=== PATIENT | female | born 1955 | race African-American/Black ===

== ENCOUNTER 2020-09-24 16:36 | Emergency (ER) | payer OTHER, SELFPAY ==
--- NOTE | ~2020-09-24 | XR_ITS ---
EXAMINATION: XR foot RT min 3V DATE: 09/24/2020 16:59 INDICATION: Right foot pain. TECHNIQUE: 4 views of right foot were obtained. COMPARISON: None. FINDINGS: There is mild hallux valgus. There is a nondisplaced oblique fracture of base of fifth meta tarsal. There is mild osteoarthritis of first metatarsophalangeal joint. There are enthesophytes at t he posterior and plantar aspects of calcaneal tuberosity. IMPRESSION: 1. Nondisplaced oblique fracture of base of fifth metatarsal. Reviewed, dictated and finalized at location A.
[2020-09-24 16:47] VITALS: BP 123/74; PULSE 97; RESP 20; TEMP 37.2; O2SAT 98
--- NOTE | 2020-09-24 16:58 | ED.LOWEXIN ---
HPI - Extremity Injury (Lower) General Chief Complaint: Extremity Injury, Lower Stated Complaint: right foot pain Time Seen by Provider: 09/24/20 17:05 Source: patient and RN notes reviewed Mode of arrival: ambulatory Limitations: no limitations History of Present Illness HPI Narrative: 64-year-old female presents with concern for right foot pain. Reports 3 days ago she was wearing she denies any decreased sensation, strength. Reports decreased range of motion. Reports pain with range of motion. Reports she has been using ice, elevation. MD complaint: foot injury Injury: Right: foot Related Data Home Medications Medication Instructions Recorded Confirmed No Home Medications 09/24/20 09/24/20 Allergies Allergy/AdvReac Type Severity Reaction Status Date / Time No Known Allergies Allergy Verified 09/24/20 16:52 Review of Systems Review of Systems: CONSTITUTIONAL: Denies malaise, chills, sweats, or fever. SKIN: Denies lacerations, abrasions, bruising, redness MUSCULOSKELETAL: Reports right lateral foot pain NEUROLOGIC: Denies numbness, weakness All systems reviewed & are unremarkable except as noted in HPI and below PMFSH Comments At time of signature, agree with nursing past medical, surgical, social and family history. There is no relevant family history pertinent to the presenting complaint Exam Narrative: GENERAL: Well-appearing, well-nourished, and in no acute distress. HEAD: Normocephalic, atraumatic. EYES: PERRLA, conjunctivae clear NECK: Supple. CHEST: Speaks in full sentences. No respiratory distress. HEART: Regular rate and rhythm. Normal and equal peripheral pulses. EXTREMITIES: Right foot, digits of right foot have normal strength and sensation, limited range of motion. No edema or ecchymosis. Mild amount of lateral erythema. 5/5 strength with ankle and digit flexion and extension. Normal sensation with sensitivity to light touch and pain. Lateral tenderness. No open wounds, no skin tenting, no devitalized tissue or atrophy, no trophic changes, no obvious deformity, alignment normal, nearby joints and structures intact. Distal pulses palpable and equal bilaterally, skin warm, dry, pink. Capillary refill less than 3 seconds. SKIN: Warm, dry, no rash. NEURO: Alert and oriented x3. PSYCH: Normal mood and affect Course Course Emergency Course: Patient is aware of diagnosis, understands and agrees to treatment plan. Anticipatory guidance given. Patient agrees to follow-up as directed and is aware of reasons to seek care at the emergency department. Portions of this record may have been created with voice recognition software Vital Signs Vital signs: Vital Signs Temperature 98.9 F 09/24/20 16:47 Pulse Rate 97 09/24/20 16:47 Respiratory Rate 20 09/24/20 16:47 Blood Pressure 123/74 09/24/20 16:47 Pulse Oximetry 98 09/24/20 16:47 Temperature 98.9 F 09/24/20 16:47 Pulse Rate 97 09/24/20 16:47 Respiratory Rate 20 09/24/20 16:47 Blood Pressure 123/74 09/24/20 16:47 Pulse Oximetry 98 09/24/20 16:47 Reviewed. MDM - Extremity Injury (Lower) MDM Narrative Medical decision making narrative: Patients injury and pain is consistent with musculoskeletal etiology. No signs of neurological or vascular compromise on exam. Compartments and tissues are soft without signs of compartment syndrome. Pain is felt appropriate for further evaluation on an outpatient basis. Imaging Data My impression: Images reviewed, interpreted by radiologist, agree, see report. Radiologist's impression: EXAMINATION: XR foot RT min 3V DATE: 09/24/2020 16:59 INDICATION: Right foot pain. TECHNIQUE: 4 views of right foot were obtained. COMPARISON: None. FINDINGS: There is mild hallux valgus. There is a nondisplaced oblique fracture of base of fifth metatarsal. There is mild osteoarthritis of first metatarsophalangeal joint. There are enthesophytes at the posterior and plantar aspects of calcaneal
== END 2020-09-24 17:29 | disposition home or self-care (01) ==
PROVIDERS: Emergency Provider Nurse Practitioner
DX: S92.354A Nondisplaced fracture of fifth metatarsal bone, right foot, initial encounter for closed fracture (principal); X58.XXXA Exposure to other specified factors, initial encounter; J44.9 Chronic obstructive pulmonary disease, unspecified; I50.9 Heart failure, unspecified; Z95.5 Presence of coronary angioplasty implant and graft
CPT/HCPCS: 73630; 99204; G0463

== ENCOUNTER 2023-09-19 16:51 | Emergency (ER) | payer OTHER, SELFPAY ==
--- NOTE | ~2023-09-19 | XR_ITS ---
EXAM: XR foot LT min 3V DATE: 09/19/2023 17:38 HISTORY: injury 3 days ago. lateral pain LT foot . COMPARISON: None available. FINDINGS: Decreased mineralization. No fracture or dislocation. No lytic or blastic lesion. Transver se fractures of the necks of the second through fourth metatarsals with mild lateral angulation. Achi lles and plantar enthesopathy No erosion or periosteal change. Soft tissues within normal limits. IMPRESSION: Transverse, mildly angulated fractures of the second through fourth metatarsal necks. Reviewed, dictated and finalized at location K.
[2023-09-19 17:06] VITALS: BP 140/94; PULSE 90; RESP 16; TEMP 36.8; O2SAT 100
--- NOTE | 2023-09-19 17:41 | ED.LOWEXIN ---
HPI - Extremity Injury (Lower) General Chief Complaint: Extremity Injury, Lower Stated Complaint: left foot injury Time Seen by Provider: 09/19/23 17:39 Source: patient and RN notes reviewed Mode of arrival: wheelchair Limitations: no limitations History of Present Illness HPI Narrative: Patient presents today complaining of left foot pain. Three days ago she was walking and rolled her foot on a curb. She has been having pain to the dorsum of the foot ever since with some mild intermittent numbness to the area as well. Pain increases with weight-bearing and currently rates her pain 7/10. She has tried no [id number] treatment prior to arrival. Related Data Home Medications Medication Instructions Recorded Confirmed aspirin 81 mg tablet,delayed 81 mg PO DAILY 09/26/20 04/21/21 release (Adult Aspirin Regimen) albuterol sulfate 90 mcg/actuation inhalation 09/19/23 aerosol inhaler atorvastatin 80 mg tablet mg 09/19/23 carvedilol 3.125 mg tablet mg 09/19/23 empagliflozin 10 mg tablet mg 09/19/23 (Jardiance) famotidine 40 mg tablet mg 09/19/23 isosorbide mononitrate 30 mg mg PO 09/19/23 tablet,extended release 24 hr lidocaine 5 % topical patch patch 09/19/23 nitroglycerin 0.4 mg sublingual mg 09/19/23 tablet omeprazole 40 mg capsule,delayed mg 09/19/23 release sacubitril 97 mg-valsartan 103 mg tablet 09/19/23 tablet (Entresto) spironolactone 25 mg tablet mg 09/19/23 Allergies Allergy/AdvReac Type Severity Reaction Status Date / Time ibuprofen Allergy Intermediate Swelling Verified 09/19/23 17:04 Penicillins Allergy Intermediate Swelling Verified 09/19/23 17:03 Review of Systems Review of Systems: CONSTITUTIONAL: Denies body aches, fever, chills, or sweats. EYES: Denies visual changes, redness, or discharge. ENT: Denies rhinorrhea, congestion, sore throat, or otalgia. CARDIOVASCULAR: Denies chest pain, palpitations, or edema. RESPIRATORY: Denies cough or dyspnea. GASTROINTESTINAL: Denies abdominal pain, nausea, vomiting, or diarrhea. GENITOURINARY: Denies dysuria or hematuria. SKIN: Denies rash, itching, or wounds. MUSCULOSKELETAL: Denies back pain. + left foot injury NEUROLOGIC: Denies headache, numbness, tingling, or weakness. PSYCH: Denies depression or anxiety. FOR[facility]LY [facility] Past Medical History Medical History Achilles tendinitis of left lower extremity Arthritis Asthma Chest tightness CHF (congestive heart failure) COPD (chronic obstructive pulmonary disease) Coughing Dementia Diabetes GERD (gastroesophageal reflux disease) Hearing loss Hypertension Light headedness Pulmonary hypertensive arterial disease SOB (shortness of breath) Stroke Wears glasses Surgical History Surgical History History of colectomy History of hysterectomy History of tubal ligation Family History Family History Other Arthritis Cerebrovascular accident Heart disease Hypertension Social History Social History Smoking packs per day: 2 Smoking cigarettes per day: 40.0 Years smoked: 30 Smoking pack-years: 60.00 Smoking status: Former smoker Substance use: former Substance use type: marijuana and crack/cocaine Gender identity (if verbalized by the patient): Female Comments At time of signature, I have reviewed and agree with nursing past medical, surgical, social and family history unless otherwise noted. Please see nursing chart for further information. There is no relevant family history pertinent to the presenting complaint Exam Narrative: GENERAL: Well-appearing, well-nourished, and in no acute distress. HEAD: Normocephalic, atraumatic. EYES: EOMI. No redness or drainage. Conjunctivae normal. ENT: Mucous membranes
== END 2023-09-19 18:32 | disposition home or self-care (01) ==
PROVIDERS: Emergency Provider Nurse Practitioner
DX: S92.322A Displaced fracture of second metatarsal bone, left foot, initial encounter for closed fracture (principal); S92.332A Displaced fracture of third metatarsal bone, left foot, initial encounter for closed fracture; S92.342A Displaced fracture of fourth metatarsal bone, left foot, initial encounter for closed fracture; X50.9XXA Other and unspecified overexertion or strenuous movements or postures, initial encounter; Y93.01 Activity, walking, marching and hiking; M19.90 Unspecified osteoarthritis, unspecified site; I11.0 Hypertensive heart disease with heart failure; I50.9 Heart failure, unspecified; J44.9 Chronic obstructive pulmonary disease, unspecified; F03.90 Unspecified dementia, unspecified severity, without behavioral disturbance, psychotic disturbance, mood disturbance, and anxiety; E11.9 Type 2 diabetes mellitus without complications; K21.9 Gastro-esophageal reflux disease without esophagitis; I27.20 Pulmonary hypertension, unspecified; Z86.73 Personal history of transient ischemic attack (TIA), and cerebral infarction without residual deficits; Z87.891 Personal history of nicotine dependence
CPT/HCPCS: 73630; 99214; G0463